=== PATIENT | female | born 1985 | race Caucasian/White ===

== ENCOUNTER 2017-03-02 19:13 | Emergency (ER) | payer SELFPAY ==
[2017-03-02 19:13] VITALS: BMI 42.2
[2017-03-02] MEDS ORDERED: Acetaminophen-Codeine 300/30 mg Tab PO STA (19:37)
[2017-03-02 19:44] VITALS: BP 111/72; PULSE 89; RESP 14; TEMP 98.9; O2SAT 97
--- NOTE | 2017-03-02 19:49 | C.PDOC ---
Time Seen by Provider: 03/02/17 19:28 Chief Complaint (Nursing): ENT Problem Past Medical History Vital Signs: Last Vital Signs Temp 98.9 F 03/02/17 19:25 Pulse 89 03/02/17 19:25 Resp 14 03/02/17 19:25 BP 111/72 03/02/17 19:25 Pulse Ox 97 03/02/17 19:25 - [facility] Procedures REPAIR OB LACERATION NEC (03/13/14) Family History: States: Unknown Family Hx - Social History Hx Tobacco Use: No Hx Alcohol Use: No Hx Substance Use: No - Immunization History Hx Tetanus Toxoid Vaccination: No Hx Influenza Vaccination: No Hx Pneumococcal Vaccination: No ED Course And Treatment O2 Sat by Pulse Oximetry: 97 Disposition Counseled Patient/Family Regarding: Diagnosis, Need For Followup, Rx Given - Disposition Disposition: HOME/ ROUTINE Disposition Time: 19:49 Condition: STABLE Additional Instructions: Please follow up with PMD Take meds as directed Return to ER if worse Prescriptions: Ibuprofen [Motrin Tab] 800 mg PO QID #20 tab Neomycin/Polymyxin/Hydrocortis [Cortisporin Otic Susp] 4 drop AU TID #1 bottle Instructions: Otitis Externa (ED) Forms: [employer] (Welsh) Print Language: BULGARIAN - Clinical Impression Clinical Impression: Otitis externa
--- NOTE | 2017-03-02 19:53 | C.PDOC ---
History Of Present Illness 31 y/o female c/o bilateral ear pain for 3 days. Patient denies fever, chills, nausea, vomiting, headache, dizziness, or URI symptoms. Time Seen by Provider: 03/02/17 19:28 Chief Complaint (Nursing): ENT Problem History Per: Patient History/Exam Limitations: None Onset/Duration Of Symptoms: Days (3) Current Symptoms Are (Timing): Still Present Quality (Ear): Pain W/Touch Severity: Mild Past Medical History Reviewed: Historical Data, Nursing Documentation, Vital Signs Vital Signs: Last Vital Signs Temp 98.9 F 03/02/17 19:25 Pulse 89 03/02/17 19:25 Resp 14 03/02/17 19:25 BP 111/72 03/02/17 19:25 Pulse Ox 97 03/03/17 03:36 - [facility] Procedures REPAIR OB LACERATION NEC (03/13/14) Family History: States: Unknown Family Hx - Social History Hx Tobacco Use: No Hx Alcohol Use: No Hx Substance Use: No - Immunization History Hx Tetanus Toxoid Vaccination: No Hx Influenza Vaccination: No Hx Pneumococcal Vaccination: No Review Of Systems Except As Marked, All Systems Reviewed And Found Negative. Constitutional: Negative for: Fever ENT: Positive for: Ear Pain. Negative for: Nose Discharge, Nose Congestion, Throat Pain Respiratory: Negative for: Cough Gastrointestinal: Negative for: Nausea, Vomiting Physical Exam - Physical Exam Appears: Non-toxic, In Acute Distress (Crying due to ear pain) Skin: Warm, Dry Head: Atraumatic, Normacephalic Ear(s): Left: Other (Left tragal tenderness and erythematous canal. Purulent effusion tothe left ear canal with swelling. Unable to visualize TM due to effusion. Right tragal tenderness, Minimal erythema, no effusion.), Right: Other Throat: Normal, No Erythema Neck: Normal, No Other (swelling) Respiratory: Normal Breath Sounds Neurological/Psych: Oriented x3 ED Course And Treatment O2 Sat by Pulse Oximetry: 97 Pulse Ox Interpretation: Normal Progress Note: Plans: Cortisporin, Tylenol with codeine. Pt has much improved after pain meds, cortisporin otic soln applied and directions given to continue drops and follw up instructions and return precautions discussed and understood by pt Disposition Counseled Patient/Family Regarding: Studies Performed, Diagnosis, Need For Followup, Rx Given - Disposition Disposition: HOME/ ROUTINE Disposition Time: 19:49 Condition: STABLE Additional Instructions: Please follow up with PMD Take meds as directed Return to ER if worse Prescriptions: Ibuprofen [Motrin Tab] 800 mg PO QID #20 tab Neomycin/Polymyxin/Hydrocortis [Cortisporin Otic Susp] 4 drop AU TID #1 bottle Instructions: Otitis Externa (ED) Forms: [employer] (Irish) Print Language: SWISS - Clinical Impression Clinical Impression: Otitis externa - Scribe Statement The provider has reviewed the documentation as recorded by the Scribwarner salguero All medical record entries made by the Vivibwarner were at my direction and personally dictated by me. I have reviewed the chart and agree that the record accurately reflects my personal performance of the history, physical exam, medical decision making, and the department course for this patient. I have also personally directed, reviewed, and agree with the discharge instructions and disposition.
[2017-03-02] MEDS ORDERED: Neomycin/Polymyxin/Hydrocort Otic Soln BOTTLE AU ONE (20:00)
== END 2017-03-02 20:07 | disposition home or self-care (01) ==
LOC: C.ER 19:13
DX: H60.93 Unspecified otitis externa, bilateral (principal)

== ENCOUNTER 2017-10-21 16:15 | Emergency (ER) | payer OTHER ==
[2017-10-21 16:15] VITALS: BMI 42.2
[2017-10-21 16:57] VITALS: BP 122/76; PULSE 100; RESP 20; TEMP 99; O2SAT 98
[2017-10-21] MEDS ORDERED: Neomycin/Polymyxin/Hydrocort Otic Soln BOTTLE AU STA (16:58)
--- NOTE | 2017-10-21 16:58 | C.PDOC ---
History Of Present Illness 31 y/o female presents to the ED complaining of right-sided low back pain for the past 2-3 days. Denies any injury or fall. Also complaining of burning and itching in both ears for the past week. States this started after swimming in a pool. Otherwise denies any ear discharge, ear injury, headache, fever, abd pain , dysuria, incontinence, or urinary frequency. Time Seen by Provider: 10/21/17 16:42 Chief Complaint (Nursing): Back Pain History Per: Patient History/Exam Limitations: no limitations Onset/Duration Of Symptoms: Days Current Symptoms Are (Timing): Still Present Past Medical History Reviewed: Historical Data, Nursing Documentation, Vital Signs Vital Signs: Last Vital Signs Temp 99 F 10/21/17 16:56 Pulse 100 H 10/21/17 16:56 Resp 20 10/21/17 16:56 BP 122/76 10/21/17 16:56 Pulse Ox 98 10/21/17 18:49 Surgical History: No Surg Hx - [facility] Procedures REPAIR OB LACERATION NEC (03/13/14) Family History: States: Unknown Family Hx - Social History Hx Tobacco Use: No Hx Alcohol Use: No Hx Substance Use: No - Immunization History Hx Tetanus Toxoid Vaccination: No Hx Influenza Vaccination: No Hx Pneumococcal Vaccination: No Review Of Systems Except As Marked, All Systems Reviewed And Found Negative. Constitutional: Negative for: Fever, Chills ENT: Positive for: Ear Pain (burning and itching to B/L ears). Negative for: Ear Discharge Gastrointestinal: Negative for: Abdominal Pain Genitourinary: Negative for: Dysuria, Frequency, Incontinence Musculoskeletal: Positive for: Back Pain Neurological: Negative for: Headache Physical Exam - Physical Exam Appears: Non-toxic, No Acute Distress, Other (Morbidly obese) Skin: Normal Color, Warm, Dry Head: Atraumatic, Normacephalic Eye(s): bilateral: Normal Inspection Ear(s): Bilateral: Other (Both canals appear edematous and slightly scaly, TMs visualized and appear normal; No mastoid tenderness) Oral Mucosa: Moist Neck: Normal ROM, No Midline Cervical Tenderness, No Paracervical Tenderness, Supple Chest: Symmetrical Respiratory: No Accessory Muscle Use Back: No Vertebral Tenderness, Paraspinal Tenderness (lateral muscles are slightly tender) Extremity: Bilateral: Atraumatic, Normal ROM Pulses: Left Radial: Normal, Right Radial: Normal Neurological/Psych: Oriented x3, Normal Speech, Normal Cranial Nerves, Normal Motor, Normal Sensation ED Course And Treatment - Laboratory Results Lab Interpretation: Normal (Urine is negative) O2 Sat by Pulse Oximetry: 98 (RA) Pulse Ox Interpretation: Normal Progress Note: UA and urine preg sent. Urine is negative. Patient treated with Cortisporin ear drops. Patient is medically stable, will discharge home with Motrin and ear drop prescriptions. Disposition Counseled Patient/Family Regarding: Studies Performed, Diagnosis, Need For Followup, Rx Given - Disposition Referrals: [facility] [Outside] Disposition: HOME/ ROUTINE Disposition Time: 17:31 Condition: GOOD Additional Instructions: Follow up in Clinic within 2-3 days. Return to ED if feel worse. 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 - Scribe Statement The provider has reviewed the documentation as recorded by the Scribe (Mindy Martin) All medical record entries made by the Scribe were at my direction and personally dictated by me. I have reviewed the chart and agree that the record accurately reflects my personal performance of the history, physical exam, medical decision making, and the department course for this patient. I have also personally directed, reviewed, and agree with the discharge instructions and disposition.
[2017-10-21 17:08] LABS: HCG,QUALITATIVE URINE NEGATIVE (NEGATIVE)
[2017-10-21 17:16] LABS: SQUAMOUS EPITHIAL 2 /hpf (0-5); URINE BACTERIA RARE (<OCC); URINE BILIRUBIN NEGATIVE (NEGATIVE); URINE BLOOD NEGATIVE (NEGATIVE); URINE CLARITY Clear (Clear); URINE COLOR Yellow (YELLOW); URINE GLUCOSE (UA) NORMAL (Normal); URINE LEUKOCYTE ESTERASE NEG Leu/uL (Negative); URINE PROTEIN NEGATIVE (NEGATIVE)
== END 2017-10-21 17:40 | disposition home or self-care (01) ==
LOC: C.ER 16:15
DX: M54.5 Low back pain (principal); H60.90 Unspecified otitis externa, unspecified ear